=== PATIENT | male | born 1950 | race Caucasian/White ===

== ENCOUNTER → 2018-08-18 | Outpatient (CLI) | payer MEDICARE ==
[~2018-08-18] MED LIST: ALBU0.63 NEB; ALBU18HF INH; ALEN70TA3 PO; ALEN70TA5 PO; ALPR-475 PO; BUDE10.2; BUSP10TA PO; CALC200T56 PO; CARV6.2512 PO; CHOL100012 PO; CHOL200074; DILT120C11 PO; FENO134C PO; FENO145T32 PO; FLUT100D; FLUT50DI INH; FURO-93 PO; GABA300C PO; GUAI100G2 PO; HYDR25TA6 PO; IPRA15SP2; LEVO125T PO; LEVO500T8 PO; LIDO700A5 TD; LOSA25TA2 PO; LOSA25TA6 PO; LUBI24CA7 PO; OMEP-110 PO; OMEP10CA4 PO; OXYC-432 PO; PANT20TA3 PO; PANT40TA5 PO; POTA10TA6 PO; PRED-298 PO; PRED10TA PO; PRED5TAB PO; THEO300C PO; THEO400T2; TIOT4MIS3 INH; TIZA2CAP PO; WARF2TAB PO; WARF3TAB8 PO; ZOLP-413 PO
== END | disposition home or self-care (01) ==
LOC: CFH 14:39
PROVIDERS: ATTEND Internal Medicine Cardiovascular Disease
DX: I08.0 Rheumatic disorders of both mitral and aortic valves (principal); I42.8 Other cardiomyopathies; I10 Essential (primary) hypertension; I25.2 Old myocardial infarction; Z86.73 Personal history of transient ischemic attack (TIA), and cerebral infarction without residual deficits
CPT/HCPCS: 93306

== ENCOUNTER → 2018-10-13 | Outpatient (CLI) | payer MEDICARE | END | disposition home or self-care (01) | LOC: PETCFH 12:33 | PROVIDERS: ATTEND Internal Medicine Cardiovascular Disease | DX: I42.8 Other cardiomyopathies (principal) | CPT/HCPCS: 78472; A9560 ==

== ENCOUNTER 2018-11-10 13:22 | Outpatient (CLI) | payer MEDICARE ==
[~2018-11-10 13:22] MED LIST changes: +LOSA25TA25 PO; -LOSA25TA6 PO
== END 2018-11-10 23:59 | disposition home or self-care (01) ==
LOC: PETCFH 13:22
PROVIDERS: ATTEND Internal Medicine Cardiovascular Disease
DX: I42.8 Other cardiomyopathies (principal)
CPT/HCPCS: 78472; A9560